=== PATIENT | female | born 1955 | race American Indian/Alaskan Native ===

== ENCOUNTER 2017-07-19 11:53 | Inpatient (IN) | payer OTHER ==
[2017-07-15 10:02] VITALS: BMI 26.9
[2017-07-19] MEDS ORDERED: Bupivacaine 0.5% Inj(30mL) ONE (13:48)
[2017-07-19] MEDS ORDERED: Lidocaine 1% w Epi 1:100,000 Inj ONE (13:48)
[2017-07-19] MEDS ORDERED: Lidocaine 1% Inj (20ml) ONE ×3 (13:48→15:00)
[2017-07-19] MEDS ORDERED: Midazolam 2 MG/2 ML VIAL ONE (14:59)
[2017-07-19] MEDS ORDERED: Propofol 10 mg/ml Inj (20 ML) ONE (14:59)
[2017-07-19] MEDS ORDERED: CeFAZolin 1 gm in NS 100ml IVPB ONE (15:15)
[2017-07-19] MEDS ORDERED: Sevoflurane - Inhalation Anesthetic Liq (250 ml) ONE (15:53)
[2017-07-19] MEDS ORDERED: Phenylephrine 10 mg/ml Inj ONE (16:18)
[2017-07-19] MEDS ORDERED: HYDROmorphone 0.5 mg/0.5 ml ISec IVP PRN (16:55)
[2017-07-19] MEDS ORDERED: Lactated Ringer's 1,000 ML IV SCH (17:00)
--- NOTE | 2017-07-19 17:00 | PCM.SURG1 ---
<Paul Patricio - Last Filed: 07/19/17 16:57> Surgeon's Initial Post Op Note - Surgeon's Notes Surgeon: Dr. Cueto Balance Truing Inspector: Dr. 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 Operation Performed: Exscision of recurrent Soft tissue tumor Left Lower Extremity Specimen/Specimens Removed: Left lower Extremity Tumor Estimated Blood Loss: EBL {In ML}: 50 Blood Products Given: N/A Drains Used: No Drains Post-Op Condition: Good Date of Surgery/Procedure: 07/19/17 Time of Surgery/Procedure: 16:59 <Flakito Cueto - Last Filed: 07/20/17 10:25> Procedure - Procedure and Findings -: Intraoperative unexpected finding of more than 15-20 recurrent tumors dome more than 8 inches distally suggest a more grave prognosis and Radical Excision of the Entire Ilio-Tibial tract-fascdia tu was taken with wound vac placement of the central dissection Elvis Cueto MD FACS
[2017-07-19] MEDS ORDERED: HYDROmorphone 1 mg/ml ISec IVP PRN ×2 (17:01→17:40)
[2017-07-19] MEDS ORDERED: HYDROmorphone 0.5 mg/0.5 ml ISec ONE ×2 (17:22→17:47)
[2017-07-19] MEDS ORDERED: Oxycodone/Acetaminophen 5/325 mg Tab PO PRN ×2 (17:39)
[2017-07-19] MEDS ORDERED: HYDROmorphone 0.5 mg/0.5 ml ISec IVP ONE (17:49)
[2017-07-19] MEDS ORDERED: Pneumococcal 23-Valent Vaccine IM ONE (23:08)
[2017-07-19] MEDS ORDERED: Influenza Vaccine 60 mcg/0.5 mL SYR (4YR UP) IM ONE (23:08)
[2017-07-20 07:15] LABS: HEMATOCRIT 30.5 % (36.0-48.0); MEAN CELL VOLUME 86.9 fl (80.0-105.0); MEAN CORPUSCULAR HEMOGLOBIN 28.5 pg (25.0-35.0); MEAN CORPUSCULAR HGB CONC 32.8 g/dl (31.0-37.0); RED CELL DISTRIBUTION WIDTH 14.6 % (11.5-14.5); WHITE BLOOD COUNT 14.7 10^3/ul (4.5-11.0)
[2017-07-20] MEDS: Levothyroxine 75 MCG TAB PO SCH (10:19)
--- NOTE | 2017-07-20 11:57 | CP.PCM.PN ---
Subjective - Date & Time of Evaluation Date of Evaluation: 07/20/17 Time of Evaluation: 09:47 - Subjective Subjective: General Surgery Progress Note for Dr. Cueto This patient was seen and examined this AM at bedside. She complains of pain at her lower extremity that responds to IV and PO pain medication. Otherwise no complaints at this time. Objective - Vital Signs/Intake and Output Vital Signs (last 24 hours): Temp Pulse Resp BP Pulse Ox 98 F 66 18 105/69 99 07/20/17 08:41 07/20/17 08:41 07/20/17 08:41 07/20/17 08:41 07/20/17 08:41 Intake and Output: 07/20/17 07/20/17 06:59 18:59 Intake Total 540 Output Total 50 Balance 490 - Medications Medications: Current Medications Acetaminophen (Tylenol 325mg Tab) 650 mg PO Q4H PRN PRN Reason: Fever >100.4 F Hydromorphone HCl (Dilaudid) 1 mg IVP Q3 PRN PRN Reason: Pain, severe (8-10) Levothyroxine Sodium (Synthroid) 75 mcg PO QAM [facility] Last Admin: 07/20/17 10:19 Dose: 75 mcg Ondansetron HCl (Zofran Inj) 4 mg IVP Q4H PRN PRN Reason: Nausea/Vomiting Oxycodone/Acetaminophen (Percocet 5/325 Mg Tab) 1 tab PO Q4H PRN PRN Reason: Pain, Mild (1-3) Stop: 07/22/17 17:40 Oxycodone/Acetaminophen (Percocet 5/325 Mg Tab) 2 tab PO Q4H PRN PRN Reason: Pain, moderate (4-7) Stop: 07/22/17 17:40 Last Admin: 07/20/17 00:23 Dose: 2 tab - Labs Labs: 07/20/17 06:40 - Constitutional Appears: Non-toxic - Head Exam Head Exam: ATRAUMATIC, NORMOCEPHALIC - Eye Exam Eye Exam: EOMI, Normal appearance - ENT Exam ENT Exam: Mucous Membranes Moist - Respiratory Exam Respiratory Exam: NORMAL BREATHING PATTERN - Cardiovascular Exam Cardiovascular Exam: REGULAR RHYTHM - GI/Abdominal Exam GI & Abdominal Exam: Soft. absent: Rigid, Tenderness - Neurological Exam Neurological Exam: Alert, Awake - Psychiatric Exam Psychiatric exam: Normal Affect, Normal Mood - Skin Skin Exam: Dry, Intact Assessment and Plan - Assessment and Plan (Free Text) Assessment: This is a 61F who is POD#1 s/p wide exscisionof tensor fascia tu soft tissue tumor Continue IV and PO pain medication Plan for D/C tomorrow possibly with wound vac Discussed with Dr.Williams Paul Patricio PGY2
[2017-07-21 07:16] LABS: BASO # 0.03 K/mm3 (0.0-2.0); BASO % 0.2 % (0.0-3.0); EOS # 0.3 (0.0-0.7); EOS % 2.2 % (1.5-5.0); GRAN # 9.55 (1.4-6.5); GRAN % 75.3 % (50.0-68.0); HEMATOCRIT 30.3 % (36.0-48.0); LYMPH # 1.8 (1.2-3.4); LYMPH % 14.3 % (22.0-35.0); MEAN CELL VOLUME 86.1 fl (80.0-105.0); MEAN CORPUSCULAR HEMOGLOBIN 28.4 pg (25.0-35.0); MEAN PLATELET VOLUME 10.7 fl (7.0-11.0); RED CELL DISTRIBUTION WIDTH 14.4 % (11.5-14.5); WHITE BLOOD COUNT 12.7 10^3/ul (4.5-11.0)
[2017-07-21 07:40] LABS: ALKALINE PHOSPHATASE 80 U/L (38-126); ALT/SGPT 33 U/L (7-56); AST/SGOT 31 U/L (14-36); BILIRUBIN,TOTAL 0.7 mg/dL (0.2-1.3); BLOOD UREA NITROGEN 9 mg/dL (7-21); CARBON DIOXIDE 30 mmol/L (21-33); CHLORIDE 105 mmol/L (98-107); GFR AFRICAN-AMERICAN > 60; GLUCOSE,RANDOM 102 mg/dL (70-110); POTASSIUM 3.8 mmol/L (3.6-5.0); SODIUM 141 mmol/L (132-148); TOTAL PROTEIN 7.3 g/dL (5.8-8.3)
[2017-07-21] MEDS: Levothyroxine 75 MCG TAB PO SCH (10:13)
--- NOTE | 2017-07-21 10:36 | CP.PCM.PCO ---
Physician Communication Note - Physician Communication Note Physician Communication Note: EVELYN koo home wound vac/Percocet
--- NOTE | 2017-07-21 16:25 | CP.PCM.DIS ---
Provider - Provider Date of Admission: 07/19/17 16:55 Attending physician: Flakito Cueto MD Primary care physician: Dee Uriostegui MD Time Spent in preparation of Discharge (in minutes): 35 Diagnosis - Discharge Diagnosis (1) Surgery, elective Status: Acute (2) Aftercare following surgery Status: Acute Hospital Course - Lab Results Lab Results: Most Recent Lab Values WBC 12.7 10^3/ul (4.5-11.0) H 07/21/17 06:40 RBC 3.52 10^6/uL (3.5-6.1) 07/21/17 06:40 Hgb 10.0 g/dL (12.0-16.0) L 07/21/17 06:40 Hct 30.3 % (36.0-48.0) L 07/21/17 06:40 MCV 86.1 fl (80.0-105.0) 07/21/17 06:40 MCH 28.4 pg (25.0-35.0) 07/21/17 06:40 MCHC 33.0 g/dl (31.0-37.0) 07/21/17 06:40 RDW 14.4 % (11.5-14.5) 07/21/17 06:40 Plt Count 283 10^3/uL (120.0-450.0) 07/21/17 06:40 MPV 10.7 fl (7.0-11.0) 07/21/17 06:40 Gran % 75.3 % (50.0-68.0) H 07/21/17 06:40 Lymph % (Auto) 14.3 % (22.0-35.0) L 07/21/17 06:40 Story % (Auto) 8.0 % (1.0-6.0) H 07/21/17 06:40 Eos % (Auto) 2.2 % (1.5-5.0) 07/21/17 06:40 Baso % (Auto) 0.2 % (0.0-3.0) 07/21/17 06:40 Gran # 9.55 (1.4-6.5) H 07/21/17 06:40 Lymph # 1.8 (1.2-3.4) 07/21/17 06:40 Story # 1.0 (0.1-0.6) H 07/21/17 06:40 Eos # 0.3 (0.0-0.7) 07/21/17 06:40 Baso # 0.03 K/mm3 (0.0-2.0) 07/21/17 06:40 Sodium 141 mmol/L (132-148) 07/21/17 06:40 Potassium 3.8 mmol/L (3.6-5.0) 07/21/17 06:40 Chloride 105 mmol/L (98-107) 07/21/17 06:40 Carbon Dioxide 30 mmol/L (21-33) 07/21/17 06:40 Anion Gap 10 (10-20) 07/21/17 06:40 BUN 9 mg/dL (7-21) 07/21/17 06:40 Creatinine 0.8 mg/dl (0.7-1.2) 07/21/17 06:40 Est GFR ( Amer) > 60 07/21/17 06:40 Est GFR (Non-Af Amer) > 60 07/21/17 06:40 Random Glucose 102 mg/dL (70-110) 07/21/17 06:40 Calcium 9.0 mg/dL (8.4-10.5) 07/21/17 06:40 Total Bilirubin 0.7 mg/dL (0.2-1.3) 07/21/17 06:40 AST 31 U/L (14-36) 07/21/17 06:40 ALT 33 U/L (7-56) 07/21/17 06:40 Alkaline Phosphatase 80 U/L (38-126) 07/21/17 06:40 Total Protein 7.3 g/dL (5.8-8.3) 07/21/17 06:40 Albumin 3.7 g/dL (3.0-4.8) 07/21/17 06:40 Globulin 3.6 gm/dL 07/21/17 06:40 Albumin/Globulin Ratio 1.0 (1.1-1.8) L 07/21/17 06:40 - Hospital Course Hospital Course: Patient presented for elective soft tissue surgery on 07/19 however due to unexpected size of her tumor she had a larger surgery than was originally planned. Onb post operative day one she was still in significant pain requiring both IV and PO pain medication and there for she had to stay an extra day in the hospital. Today her pain had been mostly managed with PO pian medication and sgmeera was supplied a home wound vac for negative wound therapy. She will require nursing home wound vac placement with visiting nurse service to aid in the changing of her wound vac. - Date & Time of H&P Date of H&P: 07/19/17 Discharge Exam - Head Exam Head Exam: ATRAUMATIC, NORMOCEPHALIC - Eye Exam Eye Exam: EOMI, Normal appearance - ENT Exam ENT Exam: Mucous Membranes Moist - Respiratory Exam Respiratory Exam: NORMAL BREATHING PATTERN - Cardiovascular Exam Cardiovascular Exam: REGULAR RHYTHM - GI/Abdominal Exam GI & Abdominal Exam: Soft. absent: Distended, Firm, Guarding - Neurological Exam Neurological exam: Alert, Oriented x3 - Psychiatric Exam Psychiatric exam: Normal Affect, Normal Mood - Skin Skin Exam: Dry, Intact - Additional Findings Additional findings: Wounds well aproximated non erythamatous with marci in place. Discharge Plan - Discharge Medications Prescriptions: oxyCODONE/Acetaminophen [Percocet 5/325 mg Tab] 1 tab PO TID PRN #15 tab PRN Reason: Pain, Moderate (4-7) - Follow Up Plan Condition: GOOD Disposition: HOME/ ROUTINE Instructions: Pain Management After Surgery (DC), Acute Wound Care (DC), Negative Pressure Wound Therapy (DC), Excision of Skin Lesion (DC) Additional Instructions: [place] in office in 7-10 days. Will require visiting nurse. Change wound vac every three days. Take percocet for pain as directed. If you experience new symptoms such as fevers chills chest pain please call the office or go to the emergency department Referrals: Dee Uriostegui MD [Primary Care Provider] - Flakito Cueto MD [Staff Provider] -
[2017-07-21 17:37] VITALS: BP 129/77; PULSE 78; RESP 18; TEMP 98.6; O2SAT 97
--- NOTE | 2017-07-21 20:07 | HP ---
HISTORY OF PRESENT ILLNESS: The patient is a 61-year-old, known to me from office practice. The patient has left thigh growth. Initially, my impression was probably she has a keloid at the site of herpes zoster that she has in the past, but her lump started to grow, so I referred her to Dr. Bob, who did initial biopsy in 10/2016. She had excision done. She did well, but her lump regrew, so she was brought electively for further excision that was done yesterday. Denies any fever or chills. No nausea or vomiting. No diarrhea. No leg weakness. PAST MEDICAL HISTORY: Significant for hypothyroidism. ALLERGIES: SHE IS NOT ALLERGIC TO ANY MEDICATION. MEDICATION AT HOME: She is on levothyroxine 75 mcg daily. SOCIAL HISTORY: Denies smoking, drinking or alcohol use. REVIEW OF SYSTEMS: Significant for left upper thigh growth. PHYSICAL EXAMINATION: GENERAL: Today, she is awake, alert, oriented, and communicative. VITAL SIGNS: She is afebrile, pulse 76, respirations 20, and blood pressure 117/75. LUNGS: Bilateral fair airflow. No rhonchi or crackle. HEART: S1 and S2 audible. ABDOMEN: Soft and nontender. No rebound. No guarding. NEUROLOGICAL: She is awake, alert, oriented, communicative. EXTREMITIES: Complained of back pain since she is lying in the bed longtime. Her left lower thigh has wound VAC placed and with slight bleeding. LABORATORY DATA: WBC is 14.7, hemoglobin is 10, hematocrit is 30, and platelets of 307. ASSESSMENT: 1. Left thigh tumor, status post reexcision. 2. Hypothyroidism. 3. Leukocytosis. 4. 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 PLAN: Currently the patient is on analgesics. She is on levothyroxine. We will follow up her CBC and CMP in a.m. If her WBC count trend up, we might have to start her on antibiotics. Dee Uriostegui MD
--- NOTE | 2017-07-21 21:50 | PN ---
DATE: HISTORY OF PRESENT ILLNESS: The patient is a 61-year-old, seen and examined, sitting in chair, seems to be comfortable. Wound VAC is functioning, getting ready to go home. No significant pain at the surgical site. PHYSICAL EXAMINATION VITAL SIGNS: Temperature is afebrile, pulse 78, respirations 18, and blood pressure 129/77. LUNGS: Bilateral good airflow. No rhonchi or crackles. HEART: S1 and S2 audible. ABDOMEN: Soft and nontender. No rebound. No guarding. NEUROLOGIC: She is awake, alert, oriented, communicative, and able to ambulate. Had a left thigh wound, has a wound VAC. LABORATORY DATA: WBC is 12.7, hemoglobin 10, hematocrit 30, and platelets 283. Chemistry: Sodium 141, potassium 3.8, chloride 105, CO2 30, BUN 9, creatinine 0.8, and blood sugar of 102. ASSESSMENT: 1. Status post left thigh mass excision. 2. Anemia. 3. Hypothyroidism. PLAN: The patient is being discharged today. She will follow up with Dr. Bob as an outpatient and she will have visiting nurse for wound VAC. Dee Uriostegui MD
--- NOTE | 2017-08-03 08:34 | OP ---
PROCEDURE DATE: 07/19/2017 SURGEON: Flakito Cueto MD SALES REPRESENTATIVE FACILITY SERVICES: Abbey Dejesus DO, PG-Y3 CUSTODIAL LABORER: Dr. Romaine Willis. TYPE OF ANESTHESIA: MAC, Marcaine 0.5 - 30 mL. PREOPERATIVE DIAGNOSIS: Recurrent left thigh tumor (4 cm), Rosai-Lauryn disease. POSTOPERATIVE DIAGNOSIS: Pending pathology - multiple tumors originating from the iliotibial tract. PROCEDURE: On 07/19/2017, wide excision of the recurrent thigh tumors with intermediate layered closure and application of a wound vacuum. OPERATIVE INDICATION: The patient is a 61-year-old female who had widely excised multiple tumors from her left lateral thigh within the past year. Multiple opinions were obtained to this tumor and the consensus from the Cutaneous Pathology Service (Dr. Church) was that this was Rosai-Lauryn disease, an indeterminate pathologic skin tumor. The tumor is not known to recur very often and in this individual, the tumor did not just peel in the skin, but appeared deep to the skin from the iliotibial tract. She returns this year with another lesion and suspicion of a second one and it was decided to remove these under local with intravenous sedation any off chance that she may need to have more than one tumor removed. Risks, benefits, and the alternatives were discussed with the patient and she signed the informed consent. DESCRIPTION OF PROCEDURE: The patient is brought from the same-day surgery unit to the operating room. She is identified by her wristband, undergoes time-out procedure, and is placed on the table in a right lateral Santana position with the thigh elevated on a bolster pillow. She undergoes the induction of right intravenous analgesia (MAC) and the left thigh is prepped with Hibiclens and chlorhexidine preparation and then aseptically draped. An elliptical incision was made to excise the lesion palpated on the distal end of the incision and a field block infiltration with bupivacaine was employed by the surgeon and team. Unfortunately in dissecting down, the tumor is entered and it is aware that the tumor is much larger than the original estimate of 4 cm and a much wider and longer incision (elliptical) was then performed. The tumor was completely removed through the subcutaneous exposure, multiple other tumors were palpated at this point. It was elected at this point to enlarge the incision further with more field block infiltration and excise them entirely. These were submitted at this point to pathology after careful dissection and attention was given to the pathologist to confirm that these are tumors and not scar tissue. While this is being done, the operating team palpated one to two lesions with subcutaneous exposure further towards the hip joint and a second incision was made in the same manner and large number of tumors were encountered in this location as well, and it was elected at this point to excise the originating structure, which appeared to be the iliotibial tract. Further dissection along this tract was employed and using the gravure press set up operator's palpating finger, a second lesion was noted distal to the first incision, and this was also widely excised along with the iliotibial tract by counter incision now demonstrating three transverse elliptical incisions in the lateral thigh. All specimens are now submitted to pathology in formalin and extensive examination is now performed demonstrating no palpable remaining lesions in the thigh, whatsoever. The incisions on the proximal and distal transverse ellipses are closed with 2-0 Polysorb subcutaneous approximation and the skin with the auto suture skin stapler and interrupted 3-0 nylon retention sutures. The central portion of the dissection remains approximately a 6-7 cm circular defect, which is exposed completely down to the musculofascial layers. Attempting to close these appears to create much tension and a wound VAC was inserted into this large defect. The overlying occlusive layers were inserted and the suction turned on creating a well-positioned wound vacuum device. Dry dressings were placed on both proximal and distal incisions and the patient was transported, awakened from the operating room to the recovery room in a satisfactory condition. Sponge, instrument, and suture counts were verified as correct at the end of the procedure. Estimated blood loss during this procedure was less than 110 mL of blood. This dictation will be electronically signed without being read. The surgical assistants were present throughout the procedure from beginning to end and were extremely valuable in assisting in the dissection and in the multiple techniques used in closure. This patient's recurrence may represent a change in the unsure behavior of this tumor and that it is acting at this point extremely aggressively. The specimens and slides will be submitted to outside authorities including the Cutaneous Pathology Service (Dr. Church). Flakito Cueto MD [facility] # [id number]
== END 2017-07-21 18:30 | disposition home or self-care (01) | DRG 465 ==
LOC: SDS 11:53 → 5RNO 16:55
PROVIDERS: ADMIT Surgery; ATTEND Surgery
PROC: 0JBM0ZZ Excision of Left Upper Leg Subcutaneous Tissue and Fascia, Open Approach (ICD-10-PCS; principal; 2017-07-19 13:45)
DX: D49.2 Neoplasm of unspecified behavior of bone, soft tissue, and skin (principal); D64.9 Anemia, unspecified; E03.9 Hypothyroidism, unspecified; D72.829 Elevated white blood cell count, unspecified

== ENCOUNTER 2018-06-30 10:12 | Day surgery (SDC) | payer MEDICAID ==
[2018-06-22 11:54] VITALS: BMI 28.2
[2018-06-30 10:57] LABS: BASO # 0.11 K/mm3 (0.0-2.0); BASO % 1.1 % (0.0-3.0); EOS # 0.3 (0.0-0.7); GRAN # 6.2 (1.4-6.5); GRAN % 63.9 % (50.0-68.0); HEMOGLOBIN 11.1 g/dL (12.0-16.0); LYMPH # 2.6 (1.2-3.4); LYMPH % 26.9 % (22.0-35.0); MEAN CELL VOLUME 85.7 fl (80.0-105.0); MEAN CORPUSCULAR HEMOGLOBIN 28.9 pg (25.0-35.0); MEAN CORPUSCULAR HGB CONC 33.7 g/dl (31.0-37.0); MEAN PLATELET VOLUME 10.6 fl (7.0-11.0); MONO # 0.5 (0.1-0.6); MONO % 5.1 % (1.0-6.0); RBC 3.84 10^6/uL (3.5-6.1); RED CELL DISTRIBUTION WIDTH 13.9 % (11.5-14.5); WHITE BLOOD COUNT 9.7 10^3/uL (4.5-11.0)
[2018-06-30 11:01] LABS: BLOOD UREA NITROGEN 11 mg/dL (7-21); CALCIUM 9.2 mg/dL (8.4-10.5); GFR NON-AFRICAN AMERICAN > 60; INR 1.04; PARTIAL THROMBOPLASTIN TIME 35.8 Seconds (25.1-36.5)
[2018-06-30] MEDS ORDERED: Lidocaine 2% Inj (20ml) ONE (11:12)
[2018-06-30] MEDS ORDERED: Midazolam 2 MG/2 ML VIAL ONE ×2 (12:44→13:06)
[2018-06-30] MEDS ORDERED: Oxycodone/Acetaminophen 5/325 mg Tab PO PRN (13:33)
[2018-06-30] MEDS ORDERED: Sodium Chloride 0.45% 1,000 ML IV SCH (13:45)
[2018-06-30 14:41] VITALS: RESP 18; TEMP 97.9
[2018-06-30 15:15] VITALS: BP 140/70; PULSE 75; O2SAT 98
--- NOTE | 2018-06-30 17:29 | VASCULAR ---
PROCEDURE: Ultrasound and fluoroscopic right internal jugular venous access port. CLINICAL HISTORY: Rosai Lauryn Disease. Venous port for chemotherapy. PHYSICIAN(S): Julius Junior M.D. TECHNIQUE: The relative risks and indications of the procedure were explained to the patient and consent obtained. The patient was placed supine on the arteriogram table and the right neck and chest prepped and draped in the usual sterile fashion. Conscious sedation monitoring was provided throughout the procedure by a nurse. Antibiotics were given prior to the procedure. Under direct ultrasound guidance, the right internal jugular vein was punctured with a micro-puncture set. A 0.035 angled Glidewire was advanced into the IVC. A 4 cm incision was made below the right clavicle and the pocket blunted dissected. A 8 Ukrainian single-lumen catheter, 21 cm long, was advanced to the SVC/RA junction. The catheter was trimmed and attached to the port. The port aspirates and injects easily. The port was placed in the pocket and closed in 2 layers. The patient tolerated the procedure well. IMPRESSION: Ultrasound and fluoroscopically placed right internal jugular venous access port.
== END 2018-06-30 15:45 | disposition home or self-care (01) ==
LOC: SDS 10:12
PROVIDERS: ATTEND Radiology Vascular & Interventional Radiology
DX: D76.3 Other histiocytosis syndromes (principal)
CPT/HCPCS: 36415; 36561; 76937; 77001; 80048; 85025; 85610; 85730; 99152; 99153; C1769; C1788; J0690; J1644; J2250; J2405; J3010; J7030

== ENCOUNTER 2018-12-21 11:11 | Outpatient (CLI) | payer MEDICAID | END 2018-12-21 11:12 | disposition home or self-care (01) | LOC: RAD 11:11 ==